=== PATIENT | female | born 1980 | race Caucasian/White ===

== ENCOUNTER 2021-06-12 04:33 | Day surgery (SDC) | payer OTHER ==
[2021-06-10 17:46] VITALS: BMI 29.7
[2021-06-12] MEDS ORDERED: ACETAMINOPHEN 325 MG TABLET (FP) PO PRN (10:06)
[2021-06-12] MEDS ORDERED: ONDANSETRON 4 MG/2 ML VIAL IVPUSH PRN (10:06)
[2021-06-12] MEDS ORDERED: IBUPROFEN 400 MG TABLET (FP) PO PRN (10:06)
[2021-06-12] MEDS ORDERED: PROPOFOL 20 ML ONE (11:20)
[2021-06-12] MEDS ORDERED: MIDAZOLAM HCL 2 MG/2 ML SINGLE DOSE VIAL ONE (11:32)
[2021-06-12] MEDS ORDERED: oxyCODONE HCL 5 MG TABLET PO PRN (12:10)
[2021-06-12] MEDS ORDERED: LACTATED RINGERS SOLUTION 1,000 ML IV SCH (12:15)
[2021-06-12 15:48] VITALS: BP 100/56; PULSE 90; TEMP 97.9
== END 2021-06-12 14:30 | disposition home or self-care (01) ==
LOC: JASU-SURG 04:33
PROVIDERS: ATTEND Obstetrics & Gynecology
PROC: 0UBC7ZX Excision of Cervix, Via Natural or Artificial Opening, Diagnostic (ICD-10-PCS; principal; 2021-06-12 11:00)
DX: D06.0 Carcinoma in situ of endocervix (principal)
CPT/HCPCS: 81025; 88305-TC; 88307-TC; 94760